=== PATIENT | female | born 1995 | race Caucasian/White ===

== ENCOUNTER 2020-07-25 13:20 | Emergency (ER) | payer BC, SELFPAY ==
[2020-07-25 13:20] VITALS: BP 121/89; PULSE 88; RESP 19; TEMP 37.1; O2SAT 100; BMI 25.8
--- NOTE | 2020-07-25 13:46 | HMH.EDUTC ---
[facility] [place] Disposition Clinical Impression: Exposure to COVID-19 virus Disposition: Home, Self-Care Condition on Discharge: Good Instructions: DI for COVID-19 (Suspected or Confirmed ), Coronavirus Disease 2019, Preventing the Spread of Coronavirus Discharge Instructions Additional Instructions: *Monitor Temp, Over the counter Motrin or Tylenol as directed/as needed Tylenol every 4 hours and Motrin every 6 hours (as long as your family doctor has told you that you can take it) for fever or pain. and straight to ER if unable to lower temp less than 101.0 after medication given *Warm salt water gargles may help to soothe the throat *Throat Lozenges *Warm fluids like tea with honey may help to soothe the throat *Sleep elevated *Humidifier/Vaporizer Follow up IMMEDIATELY for new or worsening symptoms or no Noticeable improvement over the next 48-72 hours. 911 for difficulty breathing or swallowing You were tested for today for COVID19 your test result should be back in the next 24-48 hours, you may call to the [facility] to see if your test results are back in the next 48 hours [phone] [facility] hours are 9am-9pm You was given a handout with instructions for Self Quarantine and Self isolation for while you wait on test results and what to do if they are positive If you are positive the Health Dept will be contacting you also Referrals: PCP,No [Primary Care Provider] - As needed Forms: Work/School Release Time of Disposition: 13:51 Medical Decision Making - Estiven Inquiry Pt receiving controlled substance: No Estiven was queried for this patient: No Vital Signs: 07/25/20 13:20 Temperature 98.7 F Temperature Source Oral Pulse Rate [Left Radial] 88 Respiratory Rate 19 Blood Pressure [Right Arm] 121/89 Blood Pressure Mean [Right Arm] 99 Blood Pressure Source [Right Arm] Automatic Cuff Blood Pressure Position [Right Arm] Sitting 02 Sat by Pulse Oximetry 100 Oxygen Delivery Method Room Air Orders (Tests/Meds): ORDERS Category Date Time Status Covid-19 Nasal PCR ([facility]) Routine Lab 07/25/20 13:20 Ordered [facility] [place] HPI - General Stated complaint: covid exposure Time Seen by Provider: 07/25/20 13:46 Mode of Arrival: Ambulatory Source of Information: Patient Limitations: No Limitations Description of Symptoms (Recalled from Triage Doc. 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 I have reviewed the patient's past medical history: Yes ROS Obtained: Yes All systems reviewed & no additional complaints, Yes Systems reviewed as appropriate & no additional complaints - Constitutional Constitutional: Reports system reviewed and no additional complaints, except as docu, Reports body ache, Reports chills, Reports fatigue, Reports headache(s) - ENT Ears, Nose, Mouth, and Throat: Reports system reviewed and no additional complaints, except as docu, Reports nasal congestion Physical Exam - General General appearance: alert, in no apparent distress - ENT ENT exam: Present: normal exam, normal orophar
[2020-07-25 14:08] VITALS: BP 121/89; PULSE 88; RESP 19; TEMP 37.1; O2SAT 100
== END 2020-07-25 14:10 | disposition home or self-care (01) ==
PROVIDERS: Emergency Provider Nurse Practitioner
DX: Z20.822 Contact with and (suspected) exposure to COVID-19 (principal); R53.1 Weakness; R51.9 Headache, unspecified
CPT/HCPCS: 99202; G0463; U0003

== ENCOUNTER 2022-09-21 09:24 | Emergency (ER) | payer BC, SELFPAY ==
[2022-09-21 09:35] VITALS: BP 123/72; PULSE 72; RESP 18; TEMP 37; O2SAT 98; BMI 29.2
[2022-09-21 09:49] LABS: UTC Strep Screen (Rapid) Positive (Negative)
[2022-09-21 09:52] VITALS: BP 123/72; PULSE 72; RESP 18; TEMP 37; O2SAT 98
--- NOTE | 2022-09-21 10:07 | EXP.UTC ---
Discharge Plan Disposition Patient Disposition: Home, Self-Care Condition: Good Prescriptions Prescriptions: New prednisone 10 mg tablet 10 mg PO BID 3 Days Qty: 6 0RF amoxicillin [amoxicillin] 500 mg tablet 500 mg PO TID 10 Days Qty: 30 0RF icbwqrnfbnsocmc-obpamlzce-KW [Bromfed DM] 2-30-10 mg/5 mL Syrup 5 ml PO Q6H PRN (Reason: Cough) Qty: 240 0RF No Action atorvastatin 40 mg tablet 40 mg PO HS Label Comments: TAKE 1 TABLET BY MOUTH EVERY DAY AT NIGHT citalopram 20 mg tablet 20 mg PO DAILY Label Comments: TAKE 1 TABLET BY MOUTH EVERY DAY buspirone 7.5 mg tablet 7.5 mg PO DAILY Label Comments: TAKE 1 TABLET BY MOUTH TWICE A DAY montelukast 10 mg tablet 10 mg PO DAILY Label Comments: TAKE 1 TABLET BY MOUTH EVERY DAY AT NIGHT dextroamphetamine-amphetamine 5 mg capsule,extended release 24hr 5 mg PO DAILY Label Comments: TAKE 1 CAPSULE BY MOUTH EVERY DAY IN THE MORNING Referrals Follow up/Referrals: Gato Carter [Primary Care Provider] - See instructions Activity Restrictions/Add. Instructions Additional Instructions/Restrictions: Drink plenty of fluids. Take tylenol or ibuprofen for pain or fever. Take the medications as directed. Follow up with your regular doctor. GO TO THE ER FOR ANY WORSENING SYMPTOMS Clinical Impressions Clinical Impression: Strep throat Stand Alone Forms Stand Alone Forms: Work/School Release Discharge ED Provider: Lonnie Hoskins [facility] [place] HPI General Stated complaint: sore throat, ear pain Mode of Arrival: Ambulatory Source of Information: Patient Limitations: No Limitations Time Seen by Provider: 09/21/22 10:06 Description of Symptoms (Recalled from Triage Doc. by RN): PATIENT C/O SORE THROAT, SWOLLEN TONSILS, RIGHT EAR PAIN AND BODY ACHES SINCE YESTERDAY. RECENTLY EXPOSED TO STREP HEENT Symptoms (Recalled from RN notes): Yes Resp Symptoms (Recalled from RN notes): No Skin Symptoms (Recalled from RN notes): No MS Symptoms (Recalled from RN notes): No Functional Status (Recalled from RN notes): WNL History of Present Illness Provider Complaint: She states that for the past 1 day she has had sore throat, low grade fever and she has felt very bad. Related Data Home Medications Medication Instructions Recorded Confirmed atorvastatin 40 mg tablet 40 mg PO HS Cholesterol 09/21/22 09/21/22 buspirone 7.5 mg tablet 7.5 mg PO DAILY Anxiety 09/21/22 09/21/22 citalopram 20 mg tablet 20 mg PO DAILY Depression 09/21/22 09/21/22 dextroamphetamine-amphetamine ER 5 5 mg PO DAILY ADHD 09/21/22 09/21/22 mg 24hr capsule,extend release montelukast 10 mg tablet 10 mg PO DAILY Allergy symptoms 09/21/22 09/21/22 Previous Rx's Medication Instructions Recorded amoxicillin 500 mg tablet 500 mg PO TID 10 days #30 tabs 09/21/22 nrqltrqrnhtylvl-mqangmmlablsviq-VQ 5 ml PO Q6H PRN Cough #240 mL 09/21/22 2 mg-30 mg-10 mg/5 mL oral syrup (Bromfed DM) prednisone 10 mg tablet 10 mg PO BID 3 days #6 tabs 09/21/22 Allergies Allergy/AdvReac Type Severity Reaction Status Date / Time No Known Allergies Allergy Verified 09/21/22 09:45 Worker's Comp Is this a Worker's Comp case?: No [facility] Disclaimer: The information contained in this section may have been updated after the patient was seen, as this information can be updated by other users. Social History Smoking Status: Never smoker alcohol intake: never current occupational status: employed Travel in the last 8 weeks: None ROS Obtained: Yes All systems reviewed & no additional complaints except as documented Constitutional Constitutional: Reports chills and Reports fever(s) Eyes Eyes: Denies eye discharge ENT Ears, Nose, Mouth, and Throat: Reports as per HPI Cardiovascular Cardiovascular: Denies chest pain Respiratory Respiratory: Denies chest congestion and Reports cough Ga
== END 2022-09-21 10:24 | disposition home or self-care (01) ==
PROVIDERS: Emergency Provider Nurse Practitioner Family; PCP Pediatrics
DX: J02.0 Streptococcal pharyngitis (principal); R05.1 Acute cough; R11.0 Nausea; R50.9 Fever, unspecified
CPT/HCPCS: 87880; 99212; 99214; G0463

== ENCOUNTER 2023-01-26 15:26 | Emergency (ER) | payer BC, SELFPAY ==
[2023-01-26 15:40] VITALS: BP 133/86; PULSE 76; RESP 20; TEMP 36.8; O2SAT 100; BMI 29.9
--- NOTE | 2023-01-26 15:51 | EXP.UTC ---
Discharge Plan Disposition Patient Disposition: Home, Self-Care Condition: Good Prescriptions Prescriptions: New amoxicillin 875 mg tablet 875 mg PO BID Qty: 20 0RF No Action citalopram 20 mg tablet 20 mg PO DAILY Patient Comments: TAKE 1 TABLET BY MOUTH EVERY DAY buspirone 7.5 mg tablet 7.5 mg PO DAILY Patient Comments: TAKE 1 TABLET BY MOUTH TWICE A DAY montelukast 10 mg tablet 10 mg PO DAILY Patient Comments: TAKE 1 TABLET BY MOUTH EVERY DAY AT NIGHT dextroamphetamine-amphetamine 5 mg capsule,extended release 24hr 10 mg PO DAILY Patient Comments: TAKE 1 CAPSULE BY MOUTH EVERY DAY IN THE MORNING Referrals Follow up/Referrals: Gato Carter [Primary Care Provider] - See instructions Activity Restrictions/Add. Instructions Additional Instructions/Restrictions: Take medication as prescribed Do not clean ears with qtip Keep ear clean and dry to help prevent infection it should heal on its own Return if needed Follow up with your Family Doctor if needed Clinical Impressions Clinical Impression: Otitis media Qualifiers: Otitis media type: unspecified Laterality: right Qualified Code(s): H66.91 - Otitis media, unspecified, right ear Instructions Patient Instructions: Middle Ear Infection, Ear Infections (Alternative Therapy), Amoxicillin Discharge ED Provider: Nidia Lamb [facility] [place] General Stated complaint: right ear pain Mode of Arrival: Ambulatory Source of Information: Patient Limitations: No Limitations Time Seen by Provider: 01/26/23 15:51 Description of Symptoms (Recalled from Triage Doc. by RN): PATIENT STATES SHE WAS CLEANING HER RIGHT EAR OUT WITH A Q-TIP ON THURSDAY NIGHT WHEN IT STARTED HURTING AND SHE NOTICED SOME BLOOD ON THE Q-TIP AFTER SHE REMOVED IT HEENT Symptoms (Recalled from RN notes): Yes Resp Symptoms (Recalled from RN notes): No Skin Symptoms (Recalled from RN notes): No MS Symptoms (Recalled from RN notes): No Functional Status (Recalled from RN notes): WNL History of Present Illness Provider Complaint: Patient states that she has been having pain in her right ear for about a week States that on Thursday she was cleaning her ear and it was hurting and she noticed blood on the Qtip States that she has continued to have pain in her ear and worried she may have ruptured her eardrum Related Data Home Medications Medication Instructions Recorded Confirmed buspirone 7.5 mg tablet 7.5 mg PO DAILY Anxiety 09/21/22 01/26/23 citalopram 20 mg tablet 20 mg PO DAILY Depression 09/21/22 01/26/23 dextroamphetamine-amphetamine ER 5 10 mg PO DAILY ADHD 09/21/22 01/26/23 mg 24hr capsule,extend release montelukast 10 mg tablet 10 mg PO DAILY Allergy symptoms 09/21/22 01/26/23 Previous Rx's Medication Instructions Recorded amoxicillin 875 mg tablet 875 mg PO BID #20 tabs 01/26/23 Allergies Allergy/AdvReac Type Severity Reaction Status Date / Time No Known Allergies Allergy Verified 09/21/22 09:45 Worker's Comp Is this a Worker's Comp case?: No [facility] Disclaimer: The information contained in this section may have been updated after the patient was seen, as this information can be updated by other users. Social History (Updated 09/21/22 @ 21:25 by Lonnie Hoskins APRN) Smoking Status: Never smoker alcohol intake: never current occupational status: employed Travel in the last 8 weeks: None ROS Obtained: Yes All systems reviewed & no additional complaints except as documented and Yes Systems reviewed as appropriate & no additional complaints except as documented ENT Ears, Nose, Mouth, and Throat: Reports system reviewed and no additional complaints, except as documented, Reports as per HPI and Reports otalgia Cardiovascular Cardiovascular: Reports system reviewed and no additional complaints, except as documented and Reports as per HPI Respiratory Respiratory: Reports system reviewed and no additional complaints, ex
[2023-01-26 15:57] VITALS: BP 133/86; PULSE 76; RESP 20; TEMP 36.8; O2SAT 100
== END 2023-01-26 16:00 | disposition home or self-care (01) ==
PROVIDERS: Emergency Provider Nurse Practitioner; PCP Pediatrics
DX: H66.91 Otitis media, unspecified, right ear (principal)
CPT/HCPCS: 99212; 99214; G0463

== ENCOUNTER 2023-03-02 17:57 | Emergency (ER) | payer BC, SELFPAY ==
[2023-03-02 18:07] VITALS: BP 114/77; PULSE 90; RESP 16; TEMP 36.7; O2SAT 99; BMI 26.6
--- NOTE | 2023-03-02 18:14 | EXP.UTC ---
Discharge Plan Disposition Patient Disposition: Home, Self-Care Condition: Good Prescriptions Prescriptions: New prednisone 10 mg tablet 10 mg PO BID 5 Days Qty: 10 0RF fluconazole [Diflucan] 150 mg tablet 150 mg PO ONCE Qty: 1 2RF amoxicillin [amoxicillin] 500 mg tablet 500 mg PO TID 10 Days Qty: 30 0RF guaprogxypnvnxg-dtxcnwooe-LF [Bromfed DM] 2-30-10 mg/5 mL Syrup 5 ml PO Q6H PRN (Reason: Cough) Qty: 240 0RF No Action citalopram 20 mg tablet 20 mg PO DAILY Patient Comments: TAKE 1 TABLET BY MOUTH EVERY DAY buspirone 7.5 mg tablet 7.5 mg PO DAILY Patient Comments: TAKE 1 TABLET BY MOUTH TWICE A DAY dextroamphetamine-amphetamine 5 mg capsule,extended release 24hr 10 mg PO DAILY Patient Comments: TAKE 1 CAPSULE BY MOUTH EVERY DAY IN THE MORNING Referrals Follow up/Referrals: Gato Carter [Primary Care Provider] - See instructions Activity Restrictions/Add. Instructions Additional Instructions/Restrictions: Drink plenty of fluids. Take tylenol or ibuprofen for pain or fever. Take the medications as directed. Follow up with your regular doctor. GO TO THE ER FOR ANY WORSENING SYMPTOMS Clinical Impressions Clinical Impression: Pharyngitis, Acute viral syndrome Stand Alone Forms Stand Alone Forms: Work/School Release Instructions Patient Instructions: Sore Throat, DI for Pharyngitis/Tonsillopharyngitis -- Adult, Prednisone, Fluconazole Discharge ED Provider: Lonnie Hoskins [facility] General Stated complaint: exposed to strep, sore throat, cough Mode of Arrival: Ambulatory Source of Information: Patient Limitations: No Limitations Time Seen by Provider: 03/02/23 18:14 Description of Symptoms (Recalled from Triage Doc. by RN): sore throat, congestion, cough HEENT Symptoms (Recalled from RN notes): Yes Resp Symptoms (Recalled from RN notes): Yes Skin Symptoms (Recalled from RN notes): No MS Symptoms (Recalled from RN notes): No Functional Status (Recalled from RN notes): na History of Present Illness Provider Complaint: She states that for the past 3 days she has had worsening sore throat, sinus congestion and a dry cough. Related Data Home Medications Medication Instructions Recorded Confirmed buspirone 7.5 mg tablet 7.5 mg PO DAILY Anxiety 09/21/22 03/02/23 citalopram 20 mg tablet 20 mg PO DAILY Depression 09/21/22 03/02/23 dextroamphetamine-amphetamine ER 5 10 mg PO DAILY ADHD 09/21/22 03/02/23 mg 24hr capsule,extend release Previous Rx's Medication Instructions Recorded amoxicillin 500 mg tablet 500 mg PO TID 10 days #30 tabs 03/02/23 aciqzabhmynyewg-iamokdnfkobuqzq-WT 5 ml PO Q6H PRN Cough #240 mL 03/02/23 2 mg-30 mg-10 mg/5 mL oral syrup (Bromfed DM) fluconazole 150 mg tablet 150 mg PO ONCE #1 tab 03/02/23 (Diflucan) prednisone 10 mg tablet 10 mg PO BID 5 days #10 tabs 03/02/23 Allergies Allergy/AdvReac Type Severity Reaction Status Date / Time No Known Allergies Allergy Verified 03/02/23 18:06 Worker's Comp Is this a Worker's Comp case?: No [facility] Disclaimer: The information contained in this section may have been updated after the patient was seen, as this information can be updated by other users. Social History (Updated 09/21/22 @ 21:25 by Lonnie Hoskins APRN) Smoking Status: Never smoker alcohol intake: never current occupational status: employed Travel in the last 8 weeks: None ROS Obtained: Yes All systems reviewed & no additional complaints except as documented Constitutional Constitutional: Denies chills and Denies fever(s) Eyes Eyes: Denies eye discharge ENT Ears, Nose, Mouth, and Throat: Reports as per HPI Cardiovascular Cardiovascular: Denies chest pain Respiratory Respiratory: Denies chest congestion and Reports cough Gastrointestinal Gastrointestingal: Reports nausea; Denies abdominal pain, constipation, cramping, diarrhea or vomiting Musculoskeletal Musculos
[2023-03-02 18:22] LABS: UTC Strep Screen (Rapid) Negative (Negative)
[2023-03-02 19:01] VITALS: BP 114/77; PULSE 90; RESP 16; TEMP 36.7
== END 2023-03-02 19:03 | disposition home or self-care (01) ==
PROVIDERS: Emergency Provider Nurse Practitioner Family; PCP Pediatrics
DX: J20.9 Acute bronchitis, unspecified (principal); R05.9 Cough, unspecified; B34.9 Viral infection, unspecified
CPT/HCPCS: 87880; 99212; 99214; G0463

== ENCOUNTER 2024-05-07 09:36 | Emergency (ER) | payer BC, SELFPAY ==
[2024-05-07 09:45] VITALS: BP 115/64; PULSE 91; RESP 23; TEMP 37; O2SAT 98; BMI 30.4
[2024-05-07 10:17] LABS: UTC Strep Screen (Rapid) Negative (Negative)
[2024-05-07 10:18] LABS: UTC Influenza A Antigen Negative (Negative); UTC Influenza B Antigen Negative (Negative)
--- NOTE | 2024-05-07 10:37 | ED_ITS ---
Discharge Plan Disposition Patient Disposition: Home, Self-Care Condition: Good Prescriptions Prescriptions: New cefdinir 300 mg capsule 300 mg PO Q12H Qty: 20 0RF guaifenesin 400 mg tablet 400 mg PO Q4H PRN (Reason: cough) Qty: 60 0RF levocetirizine 5 mg tablet 5 mg PO HS Qty: 30 2RF No Action atorvastatin 40 mg tablet 40 mg PO HS Patient Comments: TAKE 1 TABLET BY MOUTH EVERYDAY AT BEDTIME citalopram 20 mg tablet 20 mg PO DAILY Patient Comments: TAKE 1 TABLET BY MOUTH EVERY DAY buspirone 7.5 mg tablet 7.5 mg PO DAILY Patient Comments: TAKE 1 TABLET BY MOUTH TWICE A DAY dextroamphetamine-amphetamine 5 mg capsule,extended release 24hr 15 mg PO DAILY Patient Comments: TAKE 1 CAPSULE BY MOUTH EVERY DAY IN THE MORNING Referrals Follow up/Referrals: Gato Carter [Primary Care Provider] - See instructions Activity Restrictions/Add. Instructions Additional Instructions/Restrictions: Take medication as prescribed. Increase fluids and rest. Tylenol/Ibuprofen as needed for pain/fever. If symptoms persist or worse, return to clinic or go to PCP. Clinical Impressions Clinical Impression: Bilateral acute serous otitis media, Upper respiratory tract infection Instructions Patient Instructions: DI for Viral Upper Respiratory Infection -- Adult, Middle Ear Infection Print Language Print Language: Trinidadian Discharge ED Provider: Nancy Plata [facility] General Stated complaint: cough, body aches, ear pain Mode of Arrival: Ambulatory Source of Information: Patient Limitations: No Limitations Time Seen by Provider: 05/07/24 10:37 Description of Symptoms (Recalled from Triage Doc. by RN): PATIENT C/O SORE THROAT, BODY ACHES, EAR PAIN AND CHILLS. PATIENT STATES SHE HAS BEEN FEELING BAD ALL WEEK, BUT STATES SHE STARTED FEELING WORSE YESTERDAY HEENT Symptoms (Recalled from RN notes): Yes Resp Symptoms (Recalled from RN notes): No Skin Symptoms (Recalled from RN notes): No MS Symptoms (Recalled from RN notes): No Functional Status (Recalled from RN notes): WNL History of Present Illness Provider Complaint: Pt reports that she has not felt well for the last week. She has had a cough, runny nose, bilateral ear pain, body aches, and chills. 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 Related Data Home Medications ?Medication ?Instructions ?Recorded ?Confirmed buspirone 7.5 mg tablet 7.5 mg PO DAILY Anxiety 09/21/22 05/07/24 citalopram 20 mg tablet 20 mg PO DAILY Depression 09/21/22 05/07/24 dextroamphetamine-amphetamine ER 5 15 mg PO DAILY ADHD 09/21/22 05/07/24 mg 24hr capsule,extend release atorvastatin 40 mg tablet 40 mg PO HS 05/07/24 05/07/24 Previous Rx's ?Medication ?Instructions ?Recorded cefdinir 300 mg capsule 300 mg PO Q12H #20 caps 05/07/24 guaifenesin 400 mg tablet 400 mg PO Q4H PRN cough #60 tabs 05/07/24 levocetirizine 5 mg tablet 5 mg PO HS #30 tabs 05/07/24 Allergies Allergy/AdvReac Type Severity Reaction Status Date / Time No Known Allergies Allergy Verified 03/02/23 18:06 Worker's Comp Is this a Worker's Comp case?: No [facility] Disclaimer: The information contained in this section may have been updated after the patient was seen, as this information can be updated by other users. Medical History (Updated 05/07/24 @ 10:53 by Nancy Plata APRN) Depression Anxiety Hyperlipidemia Surgical History (Updated 05/07/24 @ 10:03 by Mandy Smallwood RN) History of cholecystectomy History of appendectomy Social History (Updated 09/21/22 @ 21:25 by Lonnie Hoskins APRN) Smoking Status: Never smoker alcohol intake: never current occupational status: employed Travel in the last 8 weeks: None ROS Obtained: Yes All systems reviewed & no additional complaints except as documented Constitutional Constitutional: Reports system reviewed and no additional complaints, except as documented, Reports body ache, Reports chills and Reports malaise Eyes Eyes: Reports system reviewed and no additional complaints, except as documented ENT Ears, Nose, Mouth, and Throat: Reports system reviewed and no additional complaints, except as documented, Reports otalgia, Reports nasal congestion, Reports nasal discharge, Reports odynophagia, Reports post nasal drip and Reports sore throat Cardiovascular Cardiovascular: Reports system reviewed and no additional complaints, except as documented Respiratory Respiratory: Reports system reviewed and no additional complaints, except as documented and Reports non-productive cough Gastrointestinal Gastrointestingal: Reports system reviewed and no additional complaints, except as documented and odynophagia Genitourinary Female Genitourinary: Reports system reviewed and no additional complaints, except as documented Musculoskeletal Musculoskeletal: Reports system reviewed and no additional complaints, except as documented Integumentary/Breasts Skin/Breast: Reports system reviewed and no additional complaints, except as documented Neurologic Neurologic: Reports system reviewed and no additional complaints, except as documented Endocrine Endocrine: Reports system reviewed and no additional complaints, except as documented Hematologic/Lymphatic Henatologic/Lymphatic: Reports system reviewed and no additional complaints, except as documented Allergic/Immunologic Allergic/Immunologic: Reports system reviewed and no additional complaints, except as documented Physical Exam General General appearance: alert Comment: ill appearing Head Head exam: atraumatic and normocephalic Eye Eye exam: Present normal appearance ENT ENT exam: Present mucous membranes moist Expanded ENT Exam External ear exam: Present normal external inspection TM/Canal exam: Bilateral TM: erythema, bulging, effusion and loss of landmarks Nasal speculum exam: Bilateral: other (clear drainage) Mouth exam: Present normal external inspection Teeth exam: Present normal inspection Throat exam: Present normal inspection and tonsillar erythema Neck Neck exam: Present normal inspection Chest Chest inspection: Present normal inspection and symmetric chest wall rise Respiratory Respiratory exam: Present normal lung sounds bilaterally Cardiovascular Cardiovascular exam: Present regular rate and normal rhythm Abdominal Exam Abdominal exam: Present soft and normal bowel sounds Back Exam Back exam: Present normal inspection Neurological Exam Neurological exam: Present alert and oriented X3 Psychiatric Psychiatric exam: Present normal affect and normal mood Skin Skin exam: Present warm, dry and intact Lymphatic Lymphatic Findings: no adenopathy Medical Decision Making Medical Records Screening: Per USPSTF and CDC recommendations, given the prevalence of disease in our region, it is our hospital?s policy to screen for HIV and viral Hepatitis for all patients aged 18 and over and those with ongoing risk factors. Estiven Inquiry Pt receiving controlled substance: No Estiven was queried for this patient: No Vital Signs: 05/07/24 09:45 Temperature 98.6 F Temperature Source Oral Pulse Rate [Left Brachial] 91 H Respiratory Rate 23 Blood Pressure [Left Arm] 115/64 Blood Pressure Mean [Left Arm] 81 Blood Pressure Source [Left Arm] Automatic Cuff Blood Pressure Position [Left Arm] Sitting 02 Sat by Pulse Oximetry 98 Oxygen Delivery Method Room Air Lab Data Lab Results 05/07/24 09:48: Influenza Type A Ag Negative, Influenza Type B Ag Negative, Strep Scn Rapid Clinic Negative Orders (Tests/Meds): ORDERS Category Date Time Status Strep Screen Confirmation Stat Micro 05/07/24 09:48 Received
[2024-05-07 10:54] VITALS: BP 115/64; PULSE 91; RESP 23; TEMP 37; O2SAT 98
== END 2024-05-07 10:55 | disposition home or self-care (01) ==
PROVIDERS: Emergency Provider Nurse Practitioner Family; PCP Pediatrics
DX: H65.03 Acute serous otitis media, bilateral (principal); J06.9 Acute upper respiratory infection, unspecified
CPT/HCPCS: 87804; 87880; 99213; G0381